=== PATIENT | female | born 1930 | race Caucasian/White ===

== ENCOUNTER → 2016-11-27 | Outpatient (CLI) | payer MEDICARE, BC ==
[~2016-11-27] MED LIST: CENTRUM; COUMADIN5 MG PO; HYDROCHLOROTHIA25 MG PO; PRAVASTATIN SOD40 MG PO; TOPROL XL 50 MG50 MG PO
--- NOTE | ~2016-11-27 | CT2 ---
[facility] A Service of [facility] [place] RADIOLOGY TEXT RESULTS PATIENT: AMERICA DESIR [facility] UNIT #: [id number] AGE: [address]: CAT COOL MD SEX: F ORDER DR: [id number] [facility] [address] [place], [place] [address] [id number] O MR#: [id number] Acc #: [id number] NAME: AMERICA DESIR : 1930 SEX: F STUDY DATE/TIME: 11/27/2016 13:49 UNIT: [facility]AT ROOM: STUDY DESCRIPTION: CT Abd and Pelv W Cont Attending Physician: Cat Cool M.D. Referring Physician: Cat Cool M.D. Ordering Physician: Cat Cool M.D. Primary Care Physician: Joce Lujan M.D. MEDICAL IMAGING REPORT This report is preliminary unless electronic signature is present EXAM CT abdomen and pelvis with contrast. INDICATIONS Restaging colon cancer. Observation for metastatic disease. PROCEDURE Contrast-enhanced CT abdomen and pelvis. This CT exam was performed with one or more of the following radiation dose reduction techniques: automatic exposure control, adjustment of mA and/or kV according to patient size, and iterative reconstruction. COMPARISON 02/25/2014 FINDINGS Refer to the separately dictated chest CT for thoracic findings. The liver and spleen are unremarkable. An 11-mm nodule in the left adrenal gland is stable, most in keeping with benign adenoma. There is some scarring or focal atrophy of the lower pole of the left kidney. Pancreas is atrophic. Previous cholecystectomy. Patient is status post right hemicolectomy. No abnormal soft tissue at the anastomoses. No abdominal adenopathy. PELVIS WITH CONTRAST: No pelvic mass, fluid or adenopathy. No aggressive-appearing bone lesion. Patient is status post aortoiliac stent repair; graft is patent. IMPRESSION Previous right hemicolectomy. No convincing evidence for metastatic STS. [facility] A Service of [facility] [place] RADIOLOGY TEXT RESULTS PATIENT: AMERICA DESIR LOCATION: [facility] : 34 UNIT #: [id number] AGE: [address]: CAT COOL MD SEX: F ORDER DR: disease in the abdomen or pelvis. Dictated by... Cole Parker M.D. THIS IS AN ELECTRONICALLY VERIFIED REPORT Cole Parker M.D. at 11/30/2016 7:45 AM [email or web address]/hao TD: 11/27/2016 17:28 JOB #: [id number] MEDICAL IMAGING REPORT Page 1 of 1 COPY
--- NOTE | ~2016-11-27 | CT55 ---
[facility] A Service of [facility] RADIOLOGY TEXT RESULTS PATIENT: AMERICA DESIR LOCATION: [facility] : 34 UNIT #: [id number] AGE: [address]: CAT COOL MD SEX: F ORDER DR: [id number] [facility] [address] [place], [place] [address] [id number] O MR#: [id number] Acc #: [id number] NAME: AMERICA DESIR : 1930 SEX: F STUDY DATE/TIME: 11/27/2016 13:49 UNIT: [facility]AT ROOM: STUDY DESCRIPTION: CT Chest W Con Attending Physician: Cat Cool M.D. Referring Physician: Cat Cool M.D. Ordering Physician: Cat Cool M.D. Primary Care Physician: Joce Lujan M.D. MEDICAL IMAGING REPORT This report is preliminary unless electronic signature is present EXAM CT chest with contrast 11/27/2016 INDICATIONS Restaging colon cancer. Observation for metastatic disease. PROCEDURE Contrast-enhanced CT of the chest. This CT exam was performed with one or more of the following radiation dose reduction techniques: automatic exposure control, adjustment of mA and/or kV according to patient size, and iterative reconstruction. COMPARISON STUDIES None FINDINGS Emphysema. Mild diffuse interstitial thickening. No suspicious pulmonary nodule. Diffuse thyromegaly and heterogeneity. There are a few mildly prominent mediastinal lymph nodes. A right upper pretracheal node measures up to 1.7 cm. Cardiomegaly. No aggressive appearing bone lesion. IMPRESSION 1. No suspicious pulmonary nodule. 2. Mild diffuse interstitial thickening is nonspecific and may represent chronic change. It could also represent mild edema. 3. Thyromegaly. 4. Mildly prominent mediastinal lymph nodes are nonspecific and can be followed or compared with any available prior imaging. 5. Refer to the separately dictated CT of the abdomen and pelvis for findings below the diaphragm. Dictated by... [facility] A Service [facility] RADIOLOGY TEXT RESULTS PATIENT: AMERICA DESIR [id number] : 34 UNIT #: [id number] AGE: [address]: CAT COOL MD SEX: F ORDER DR: Cole Parker M.D. THIS IS AN ELECTRONICALLY VERIFIED REPORT Cole Parker M.D. at 11/30/2016 7:45 AM KAROLINE/robb TD: 11/27/2016 17:39 JOB #: [id number] MEDICAL IMAGING REPORT Page 1 of 1 COPY
[2016-11-27 15:10] LABS: POC - CREATININE 1.02 mg/dL (0.44-1.03)
== END | disposition home or self-care (01) ==
LOC: CCAT 12:18
PROVIDERS: Colon & Rectal Surgery
DX: C18.9 Malignant neoplasm of colon, unspecified (principal); R91.8 Other nonspecific abnormal finding of lung field; Z98.890 Other specified postprocedural states
CPT/HCPCS: 71260; 74177; 82565; Q9967